=== PATIENT | female | born 1970 | race African-American/Black ===

== ENCOUNTER 2021-08-01 21:49 | Emergency (ER) | payer OTHER ==
[~2021-08-01 21:49] MED LIST: K-DUR20 MEQ PO; MOTRIN600 MG PO; ONDANSETRON ODT4 MG PO
[2021-08-01 22:26] LABS: BASOPHIL 0.5 % (0-2); EOSINOPHIL 1.3 % (0-5); HGB 12.7 g/dl (12.5-16.0); LYMPHOCYTE 44.3 % (15-48); MCH 32.2 pg (25.0-31.0); MCHC 33.4 g/dL (32.0-36.0); MCV 96.2 fL (78.0-100.0); MPV 10.3 fL (6.0-9.5); NEUTROPHIL 45.6 % (41-80); NRBC 0; PLT 262 K/uL (150-400); RBC 3.95 M/uL (4.20-5.40); RDW 13.7 % (11.5-14.0); WBC 7.5 K/uL (4.0-10.5)
[2021-08-01 22:54] LABS: ALBUMIN 3.4 g/dL (3.4-5.0); BILIRUBIN - TOTAL 0.2 mg/dL (0.2-1.0); BUN/CREAT RATIO (CALC) 15.5 RATIO; CREATININE 0.97 mg/dL (0.51-0.95); POTASSIUM 3.6 mmol/L (3.5-5.1); TOTAL PROTEIN 7.4 g/dL (6.4-8.2)
[2021-08-01 23:05] LABS: CORONAVIRUS 2019 SARS-COV-2 NEGATIVE (NEGATIVE); INFLUENZA A NAA NEGATIVE (NEGATIVE)
== END 2021-08-02 00:40 | disposition home or self-care (01) ==
LOC: FER 21:49
PROVIDERS: Emergency Medicine
DX: J06.9 Acute upper respiratory infection, unspecified (principal); R07.89 Other chest pain; I10 Essential (primary) hypertension; Z20.822 Contact with and (suspected) exposure to COVID-19
CPT/HCPCS: 36415; 71045; 80053; 84145; 84484; 85025; 87040; 93005; U0002